=== PATIENT | male | born 1955 | race Asian ===

== ENCOUNTER 2018-12-13 05:38 | Inpatient (IN) | payer OTHER ==
[~2018-12-13] VITALS: Ht 172.7 cm; Wt 95.3 kg
[2018-12-13] VITALS (16 sets, daily range): BP systolic 105–139; BP diastolic 62–86
[~2018-12-13 05:38] MED LIST: NKM
[2018-12-13] MEDS ORDERED: Zemuron 50mg/5ml Inj IV ONE (06:27)
[2018-12-13] MEDS ORDERED: LR 1000ml 1,000 ML IVLG SCH (06:28)
[2018-12-13] MEDS ORDERED: Labetalol 5mg/ml 20ml vial IV PRN (06:30)
[2018-12-13] MEDS ORDERED: fentaNYL 100 mcg/2 mL IV PRN (06:30)
[2018-12-13] MEDS ORDERED: Atropine Sulfate 0.4mg/ml inj IVP PRN (06:30)
[2018-12-13] MEDS ORDERED: Ketorolac 30mg Inj IV PRN ×2 (06:30)
[2018-12-13] MEDS ORDERED: Metoclopramide 10mg/2ml Inj IVP PRN ×2 (06:30→12:00)
[2018-12-13] MEDS ORDERED: Midazolam 2mg/2ml Inj IVP PRN (06:30)
[2018-12-13] MEDS ORDERED: DiphenhydrAMINE 50mg/ml Inj IVP PRN (06:30)
[2018-12-13] MEDS ORDERED: HYDROcodone/Acetamin 5/325 tab ORAL PRN ×2 (06:30→10:00)
[2018-12-13] MEDS ORDERED: LORazepam Inj 2mg/ml 1ml IV PRN (06:30)
[2018-12-13] MEDS ORDERED: Hydromorphone 0.5mg/0.5ml inj IVP PRN (06:30)
[2018-12-13] MEDS ORDERED: Acetaminophen (Non formulary) 100 ML IV ONE (06:30)
[2018-12-13] MEDS ORDERED: Meperidine 50mg/ml Inj(FOR RIGORS ONLY) IVP PRN (06:30)
[2018-12-13] MEDS ORDERED: oxyCODONE HCL/Acetaminophen 5/325mg ORAL PRN (06:30)
[2018-12-13] MEDS ORDERED: HYDROcodone/Acetamin 7.5/325 tab ORAL PRN ×3 (06:30→10:00)
[2018-12-13] MEDS ORDERED: Lidocaine 1% Plain 30 ml INJ ONE (06:56)
--- NOTE | 2018-12-13 06:56 | Anethesia Preoperative Eval ---
Anesthesia Pre-op PMH/ROS General Date of Evaluation: Dec 13, 2018 Time of Evaluation: 07:31 Anesthesiologist: Sulema ASA Score: ASA 2 Mallampati Score Class I : Soft palate, uvula, fauces, pillars visible Class II: Soft palate, uvula, fauces visible Class III: Soft palate, base of uvula visible Class IV: Only hard plate visible Mallampati Classification: Class II Surgeon: Tian Diagnosis: Back Pain Surgical Procedure: L4-5 Microdiscectomy, Microdecompression Anesthesia History: none Family History: no anesthesia problems Allergies: Coded Allergies: No Known Allergies (Unverified , 12/12/18) Medications: see eMAR Patient NPO?: Yes Past Medical History Other: obesity - BMI 34 PSxH Narrative: Colonoscopy Anesthesia Pre-op Phys. Exam Physician Exam Last Vital Signs Date Time Temp Pulse Resp B/P (MAP) Pulse Ox O2 Delivery O2 Flow Rate FiO2 12/13/18 06:22 Room Air Constitutional: NAD Neurologic: CN 2-12 intact Cardiovascular: RRR Respiratory: CTA Gastrointestinal: S/NT/ND Airway Exam Mallampati Score: Class II MO: limited ROM: limited Teeth: missing, intact Anesthesia Pre-op A/P Risk Assessment & Plan Assessment: ASA 2 Plan: GA, SED, GlideScope Go Status Change Before Surgery: No Pre-Antibiotics Dru Grams Ancef IV Given Within 1 Hr of Incision: Yes Time Given: 07:46 Aly Leone MD Dec 13, 2018 06:56
[2018-12-13] MEDS ORDERED: Dexamethasone 4mg/ml vial ONE (06:58)
[2018-12-13] MEDS ORDERED: Lidocaine 1% MPF 10mg/ml 5ml ONE (06:58)
[2018-12-13] MEDS ORDERED: Sodium Chloride 10ml vial INJ ONE (06:58)
[2018-12-13] MEDS ORDERED: Ketamine 500mg Inj ONE (07:00)
[2018-12-13] MEDS ORDERED: Gelfoam Size TOPIC ONE (07:05)
[2018-12-13] MEDS ORDERED: Bacitracin 50000 Units Vial ONE (07:05)
[2018-12-13] MEDS ORDERED: Vancomycin 1gm vial IVPB ONE (07:05)
[2018-12-13] MEDS ORDERED: Thrombin 5000 units TOPIC ONE (07:05)
[2018-12-13] MEDS ORDERED: Bupivacaine w/Epi 0.5% 30ml Vial INJ ONE (07:05)
[2018-12-13] MEDS ORDERED: Sterile Water Irrig 1000ml IRRIG ONE (07:30)
[2018-12-13] MEDS ORDERED: NS Irrig 1000ml ONE (07:30)
[2018-12-13] MEDS ORDERED: LR 1000ml ONE (07:30)
[2018-12-13] MEDS ORDERED: Propofol 1,000mg/ 100ml btl IV ONE (07:30)
--- NOTE | 2018-12-13 07:42 | Pre-Procedure Note/Attestation ---
Pre-Procedure Note/Attestation Complete Prior to Procedure Procedure Narrative: Left L5S1 microdecompression and microdiscectomy Attestation I attest that I discussed the nature of the procedure; its benefits; risks and complications; and alternatives (and the risks and benefits of such alternatives ), prior to the procedure, with the patient (or the patient's legal livestock sales representative). I attest that, if there was a reasonable possibility of needing a blood transfusion, the patient (or the patient's legal livestock sales representative) was given the [facility] standardized written summary, pursuant to the [place] Blood Safety Act ([place] Health and Safety Code # 1645, as amended). I attest that I re-evaluated the patient just prior to the surgery and that there has been no change in the patient's H&P, except as documented below: Jarvis Overton MD Dec 13, 2018 07:42
--- NOTE | 2018-12-13 08:10 | Immediate Post-Op Evaluation ---
Immediate Post-Op Evalulation Immediate Post-Op Evalulation Procedure: L 5-S1, Microdiscectomy, Microdecompression Date of Evaluation: Dec 13, 2018 Time of Evaluation: 10:00 IV Fluids: 500 LR Blood Products: 0 Estimated Blood Loss: 7.5 Urinary Output: 0 Blood Pressure Systolic: 114 Blood Pressure Diastolic: 73 Pulse Rate: 71 Respiratory Rate: 16 O2 Sat by Pulse Oximetry: 100 Temperature (Fahrenheit): 97.1 Pain Score (1-10): 2 Nausea: No Vomiting: No Complications 0 Patient Status: awake, reacts, patent, extubated, none Hydration Status: adequate Dru Grams Ancef IV Given Within 1 Hr of Incision: Yes Time Given: 07:46 Aly Leone MD Dec 13, 2018 08:10
[2018-12-13] MEDS ORDERED: Glycopyrrolate 0.2mg/ml 1ml Vial ONE (09:14)
[2018-12-13] MEDS ORDERED: Neostigmine 1mg/ml 10ml Inj ONE (09:14)
--- NOTE | 2018-12-13 09:46 | Brief Operative Note ---
Immediate Post Operative Note Operative Note Pre-op Diagnosis: lumbar radiculopathy Procedure: L L5s1 microdecompression adn microdiscectomy Post-op Diagnosis: same as pre-op Findings: consistent w/pre-op dx studies Surgeon: Tian Subscription Clerk: None Anesthesiologist: Sole Anesthesia: general Specimen: yes - L5S1 disc Complications: none Condition: stable Fluids: 500cc Estimated Blood Loss: minimal - 7cc Drains: none Implant(s) used?: No Jarvis Overton MD Dec 13, 2018 09:46
[2018-12-13] MEDS ORDERED: HYDROmorphone 1mg/ml Carpuject IVP PRN (10:00)
[2018-12-13] MEDS ORDERED: Milk of Magnesia 30ml Ud ORAL PRN (10:00)
--- NOTE | 2018-12-13 11:16 | NUR ---
NURSE NOTES: Received report from La Nena Bolaños RN from surgery. Pt in bed, fatigued, but awake, talkative, no complaints of pain, no apparent distress noted. No belongings sent up with pt, still in Outpatient Surgery, La Nena states she will have someone from Outpatient surgery bring belongings to 318. Pt placed on 2L NC, LR IVF running from Post-op orders. Dressing is dermabond, 4x4 and tegaderm, dry and intact, no bleeding noted, pt able to assist in turning. Vitals obtained and assessment done, see flowsheets. Addendum: 12/13/18 at 1121 by RODRIGO RICH RN Thigh high SCDs on and working
[2018-12-13] MEDS ORDERED: Acetaminophen 650 MG SUPP RECTAL PRN (12:00)
[2018-12-13] MEDS ORDERED: Naloxone 0.4mg/ml Inj IVP PRN (12:00)
[2018-12-13] MEDS ORDERED: D5 1/2NS 1,000 ML IV SCH (12:00)
[2018-12-13] MEDS ORDERED: HYDROmorphone 1mg/ml Carpuject SUBQ PRN (12:00)
--- NOTE | 2018-12-13 15:23 | NUR ---
NURSE NOTES: Discussed in detail the physical therapy recommendations. Physical Therapy department gone for the day and unable to see pt. Provided pt with the Physical Therapy packet information and discussed the Spinal Precautions and Proper Body Mechanics. Pt verbalizes understanding.
[2018-12-13] MEDS ORDERED: ceFAZolin sod 1 GM in D5W 55 ML IV SCH (15:30)
--- NOTE | 2018-12-13 15:44 | Diagnostic Imaging Report ---
Indication: Intraoperative imaging FINDINGS: Single crosstable lateral view of the lumbar spine showing instrument posterior to L5. IMPRESSION: Intraoperative imaging
--- NOTE | 2018-12-13 17:40 | NUR ---
NURSE NOTES: Pt asking to go home tonight. Notified Dr. Overton vitals are stable, no pain meds given as pt denies pain, pt has walked to the bathroom for urination, but no BM as of this time, is tolerated regular diet, finished dinner tray, was provided PT and spinal precaution information, has IS at bedside and teaching done by Respiratory, neuro checks at stable and within normal limits, pt states he has lumbar brace at home and his will be home this evening after work.
--- NOTE | 2018-12-13 18:49 | NUR ---
NURSE NOTES: Left message for Dr. Overton regarding pt wanting to go home, and needing official DC order
--- NOTE | 2018-12-13 19:13 | NUR ---
HAND-OFF: Report given to CHRISTIAN Decker. PT stable.
--- NOTE | 2018-12-13 19:45 | NUR ---
NURSE NOTES: Received report from CHRISTIAN Rios. Received pt sitting up in bed, AOX4, denies any pain, no distress noted. Surgical dressing C/D/I. Bed in lowest position and locked, side rails up x 2, call light within reach. Will continue to monitor.
--- NOTE | 2018-12-13 20:00 | NUR ---
NURSE NOTES: Pt is stable to be discharge to home. VSS, denies any pain, no distress noted. IV d/c'd per protocol. Applied 4x4 and tape, no bleeding noted. D/C instruction discussed with patient. Pt verbalized understanding. All belongings taken by pt. Pt awaiting ride to be discharge.
--- NOTE | 2018-12-13 20:15 | NUR ---
NURSE NOTES: Discharge pt via wheelchair taken down by RN. Pt in stable condition. D/C pt via private car (uber).
--- NOTE | 2018-12-13 21:30 | Operative Note - Dictated ---
DATE OF OPERATION: 12/13/2018 PREOPERATIVE DIAGNOSES: L5-S1 disk protrusion with stenosis and left lower extremity radiculopathy. POSTOPERATIVE DIAGNOSES: L5-S1 disk protrusion with stenosis and left lower extremity radiculopathy. PROCEDURE PERFORMED: 1. Left-sided L5-S1 medial facetectomy, foraminotomy, and microdiskectomy. 2. Intraoperative use of fluoroscopy. 3. Intraoperative use of microscope. SURGEON: Jarvis Overton M.D. FLUXER: There was no it administrative assistant. ANESTHESIA: General endotracheal anesthesia. ANESTHESIOLOGIST: Dr. Leone. INTRAOPERATIVE FINDINGS: Herniated nucleus of left paracentral L5-S1 with impingement of the traversing L5 nerve root as well as with foraminal stenosis and impingement of the exiting left L5 nerve root. EBL: 7 mL. FLUIDS: 500 mL of crystalloid. INDICATIONS: This is a pleasant male who has failed nonoperative treatment and option for above treatment was given. Risks, alternatives, benefits were discussed with the patient at length. The patient wished to p proceed. The risks include, but are not limited to, anesthesia complications including , medical complications including liver, kidney, cardiopulmonary deficits, infection, bleeding, CSF leak, nerve root injury, pars fracture, instability, reherniation, as well as continued symptoms. DESCRIPTION OF OPERATION: The patient was brought in the operating room supine on the stretcher. Subsequently, appropriate IV lines were placed. A 2 g of Ancef was administered. Surgical time-out was called. Anesthesia was induced. The patient was successfully intubated. Sequential compression devices were placed onto the bilateral lower extremities. A Blanchard was placed under sterile conditions. The patient was gently turned over prone on the [place] frame table. All bony prominences well padded. The abdomen was assured to lay freely. The L5-S1 interspace was positively identified with an indelible marker, was marked at the midline. The patient was prepped and draped in usual sterile fashion with alcohol, chlorhexidine scrub, ChloraPrep, Ioban draping. At this point, the intraoperatively sterilely draped microscope was brought into the field and a midline incision was carried out at L5-S1. Subperiosteal dissection was undertaken towards the left side in the laminas of L5 and S1 and this was all done with the intraoperatively sterilely draped microscope. With the use of a high-speed drill, straight and curved curettes, #2 through #5 Kerrison punches, an interlumbar laminotomy medial facetectomy was done. The ligamentum flavum was carefully peeled off and removed and a complete decompression of the foramina and the superior aspect of the superior articular facet was done. The L5 nerve root was found to be compressed. A Spencer ball was used to check the foramina and the foramina was still tight. At this point, the medial aspect of the superior articular facet was removed and the pedicle was skeletonized for complete posterior decompression of the S1 nerve root. Now, the neural elements were carefully retracted medially and with a #11 scalpel, a cruciate incision was carried out into the disc on and with the use of Austin curette, pituitary rongeur straight and forward, and back angled Peapod, nerve hook, dental probe, Austin, a microdiskectomy was done. All loose disk material was removed until the floor of the canal was flat. Most of the disk material was removed and sent off the specimen. Some of the disk material was sucked via the sucker and at this point, further probing inside the disk space was found. There was no loose fragment. Irrigation was done inside the disk and further loose fragments were removed. Another search was done. There were no other loose fragments. Another round of irrigation was done. At this point, the central canal, the subarticular recess, the lateral recess, the foramina were found to be patent and the L4 and L5 nerve roots were completely decompressed. Valsalva at 40 mmHg was done. There was no CSF leak. All sponge, needle, instrument counts were correct. There was no bleeding. At this point, attention was diverted to closure. The dorsal lumbar fascia was closed with #1 Vicryl sutures in a watertight interrupted fashion. The subdural subcuticular layers were closed with inverted 2-0 Vicryl sutures. The skin was closed with Dermabond. Sterile dressing tape was placed. There was no complications. EBL was 7 mL. All sponge, needle, instrument counts were correct. Sterile dressing tape was placed. The patient was turned supine, was extubated in stable condition, was taken to the recovery room in stable condition and found to be neurovascularly intact and was admitted to the hospital. Jarvis Overton M.D. DR: TARA JOB#: [id number] CC:
--- NOTE | 2018-12-14 06:40 | Discharge Summary ---
Discharge Summary Discharge Summary _ DATE OF ADMISSION: 12/13/2018 DATE OF DISCHARGE: 12/13/2018 DISCHARGED BY: Dr. Jarvis Overton BRIEF HOSPITAL COURSE: Patient is a 63-year-old male, who was suffering from left lower extremity radiculopathy secondary to L5-S1 disc protrusion, who has failed nonoperative treatment was admitted on 12/13/2018 and underwent sided L5-S1 medial facetectomy, foraminotomy and microdiscectomy. He tolerated procedure well. Surgery was uneventful. Post-operatively, patient was admitted under observation for post-op care. He was placed on SCDs for DVT prophylaxis and was encouraged use of incentive spirometer. Patient was given pain management. He was seen by PT. Diet was advanced. Incision was clean, dry and intact. Patient was ambulating well with good pain control and was tolerating diet. Patient was eventually cleared for discharge home. PREOPERATIVE DIAGNOSES: L5-S1 disk protrusion with stenosis and left lower extremity radiculopathy. POSTOPERATIVE DIAGNOSES: L5-S1 disk protrusion with stenosis and left lower extremity radiculopathy. PROCEDURE PERFORMED: 1. Left-sided L5-S1 medial facetectomy, foraminotomy, and microdiskectomy. 2. Intraoperative use of fluoroscopy. 3. Intraoperative use of microscope. INTRAOPERATIVE FINDINGS: Herniated nucleus of left paracentral L5-S1 with impingement of the traversing L5 nerve root as well as with foraminal stenosis and impingement of the exiting left L5 nerve root. (Refer to Operative Report) DISCHARGE DISPOSITION: Patient was discharged home. DISCHARGE MEDICATIONS: Refer to Medication Reconciliation Sheet. DISCHARGE INSTRUCTIONS: Post-op instructions given. Follow-up in a week. I have been assigned to complete a DC summary on this account, I was not involved with the patient's management. Mimi Powell NP Dec 14, 2018 06:39
--- NOTE | 2018-12-14 12:15 | 48 Hour Post Anesthesia Eval ---
Post Anesthesia Evaluation Procedure: L 5-S1, Microdiscectomy, Microdecompression Date of Evaluation: Dec 14, 2018 Airway: patent Nausea: No Vomiting: No Pain Intensity: 0 Hydration Status: adequate Cardiopulmonary Status: at baseline Mental Status/LOC: patient returned to baseline Post-Anesthesia Complications: 0 Follow-up care needed: ready to discharge Lakshmi Benz MD Dec 14, 2018 12:15
== END 2018-12-13 21:30 | disposition home or self-care (01) | DRG 520 ==
LOC: SDSOVERFLO 05:38 → 3E 10:24
PROC: 01NB0ZZ Release Lumbar Nerve, Open Approach (ICD-10-PCS; principal; 2018-12-13 07:30)
PROC: 0ST40ZZ Resection of Lumbosacral Disc, Open Approach (ICD-10-PCS; principal; 2018-12-13 07:30)
DX: M51.17 Intervertebral disc disorders with radiculopathy, lumbosacral region (principal); M48.07 Spinal stenosis, lumbosacral region; M25.80 Other specified joint disorders, unspecified joint
CPT/HCPCS: 36415; 72020; 76000; 86850; 86900; 86901; 87081; 96360; 96361; G0378; J2405; J2710; J2765